=== PATIENT | female | born 1965 | race African-American/Black ===

== ENCOUNTER 2021-04-04 00:08 | Emergency (ER) | payer MEDICAID ==
[~2021-04-04] VITALS: Ht 157.5 cm; Wt 55.0 kg
[2021-04-04] MEDS ORDERED: HYDROCODONE/ACETAMINOPHEN 5/325MG TABLET PO STA (01:53)
[2021-04-04 02:15] VITALS: BP 148/86
[2021-04-04] MEDS ORDERED: IBUP-2029 MT (05:58)
== END 2021-04-04 11:32 | disposition home or self-care (01) ==
LOC: ER 00:08
DX: M54.5 Low back pain (principal); M54.2 Cervicalgia; S22.39XA Fracture of one rib, unspecified side, initial encounter for closed fracture; M79.18 Myalgia, other site; R03.0 Elevated blood-pressure reading, without diagnosis of hypertension; V49.49XA Driver injured in collision with other motor vehicles in traffic accident, initial encounter; Y93.89 Activity, other specified; Y92.488 Other paved roadways as the place of occurrence of the external cause
CPT/HCPCS: 70450; 71045; 72125; 72128; 72131; 99285; Z7610

== ENCOUNTER 2021-11-28 21:18 | Emergency (ER) | payer MEDICAID ==
[~2021-11-28] VITALS: Ht 160 cm; Wt 53.0 kg
[~2021-11-28 21:18] MED LIST: IBUP-2029 MT
[2021-11-28 22:22] VITALS: BP 134/82
[2021-11-28] MEDS ORDERED: IBUP-2028 MT (23:42)
[2021-11-28] MEDS ORDERED: IBUPROFEN 600MG TABLET PO ONE (23:45)
== END 2021-11-28 23:58 | disposition home or self-care (01) ==
LOC: ER 21:18
DX: S83.8X1A Sprain of other specified parts of right knee, initial encounter (principal); R03.0 Elevated blood-pressure reading, without diagnosis of hypertension; W01.0XXA Fall on same level from slipping, tripping and stumbling without subsequent striking against object, initial encounter; Y93.89 Activity, other specified; Y92.89 Other specified places as the place of occurrence of the external cause
CPT/HCPCS: 73562; 99283

== ENCOUNTER 2021-12-31 14:07 | Emergency (ER) | payer MEDICAID ==
[~2021-12-31] VITALS: Ht 160 cm; Wt 54.0 kg
[~2021-12-31 14:07] MED LIST changes: +IBUP-2028 MT
[2021-12-31 14:12] VITALS: BP 152/95
[2021-12-31] MEDS ORDERED: MELO-104 MT (14:17)
== END 2021-12-31 15:36 | disposition home or self-care (01) ==
LOC: ER 15:16
DX: M25.561 Pain in right knee (principal); M25.461 Effusion, right knee; R03.0 Elevated blood-pressure reading, without diagnosis of hypertension
CPT/HCPCS: 99282; 99283